=== PATIENT | male | born 1985 | race Caucasian/White ===

== ENCOUNTER 2019-04-11 17:35 | Emergency (ER) | payer MEDICAID, OTHER ==
[~2019-04-11] VITALS: Ht 175.3 cm; Wt 144.7 kg
[~2019-04-11 17:35] MED LIST: CYCL5TAB PO; DICL100G37 TOP; LIDO1ADH3 TP; NAPR-985 PO; PRED20TA PO
[2019-04-11 17:39] VITALS: Ht 175.3 cm; Wt 144.7 kg
[2019-04-11] MEDS ORDERED: KETOROLAC 60 MG INJ IM STA (18:09)
[2019-04-11 18:55] VITALS: BP 147/99; PULSE 67; RESP 20
== END 2019-04-11 19:05 | disposition home or self-care (01) ==
LOC: E/R 17:35
DX: S43.402A Unspecified sprain of left shoulder joint, initial encounter (principal); I10 Essential (primary) hypertension; E66.9 Obesity, unspecified; X50.1XXA Overexertion from prolonged static or awkward postures, initial encounter; Y92.89 Other specified places as the place of occurrence of the external cause; Z68.42 Body mass index [BMI] 45.0-49.9, adult
CPT/HCPCS: 73030; 93005; 96372; J1885; Z7502; Z7610